=== PATIENT | male | born 1950 ===

== ENCOUNTER → 2016-05-23 | Outpatient (CLI) | payer OTHER ==
--- NOTE | 2016-05-23 12:11 | DI ---
INDICATION: ITS.REASON: DX TESTING PROCEDURE: CHEST 2-VIEWS UPRIGHT (PA \T\ LAT) Encounter: Initial COMPARISON: None FINDINGS: The lungs are clear without evidence of focal abnormal airspace opacity. There is no pleural effusion or pneumothorax. The heart size, mediastinal contours and pulmonary vascularity are within normal limits. There is no significant skeletal abnormality. IMPRESSION: No acute cardiopulmonary disease. .
--- NOTE | 2016-05-24 10:53 | ECHOF ---
ECHOCARDIOGRAM REPORT DATE OF PROCEDURE May 23, 2016 This is a two-dimensional echo with spectral Doppler, color-flow and M-mode. Left atrium is dilated. Left ventricle end-diastolic dimension is increased. Left ventricular wall thickness is normal. LV systolic function is normal with ejection fraction of 63%. Right atrium is dilated. Right ventricle is normal. Aortic root dimension is normal. Mitral annulus is calcified. Mitral valve leaflets are normal with mild mitral regurgitation. Aortic valve is a trileaflet structure with no stenosis. Mild aortic insufficiency is present. Tricuspid valve shows mild tricuspid regurgitation with estimated pulmonary artery systolic pressure of 34. Pulmonary valve shows mild pulmonary insufficiency. There is no pericardial effusion. IMPRESSION 1. Normal LV systolic function with ejection fraction of 63%. 2. Biatrial dilation. 3. Left ventricular dilation. 4. Mitral annulus calcification with mild mitral regurgitation. 5. Mild aortic insufficiency. 6. Mild tricuspid regurgitation with estimated pulmonary artery systolic pressure of 34. 7. Mild pulmonary insufficiency. MTDD
== END ==
LOC: IMA 10:48
DX: Z02.9 Encounter for administrative examinations, unspecified (principal)
CPT/HCPCS: 93306